=== PATIENT | male | born 2000 | race Caucasian/White ===

== ENCOUNTER 2023-09-17 02:30 | Emergency (ER) | payer SELFPAY ==
[2023-09-17 02:32] VITALS: BP 144/85; PULSE 84; RESP 16; TEMP 37.1; O2SAT 100
== END 2023-09-17 02:40 | disposition left against medical advice (07) ==
PROVIDERS: PCP Pediatrics
DX: S39.92XA Unspecified injury of lower back, initial encounter (principal); V43.52XA Car driver injured in collision with other type car in traffic accident, initial encounter
CPT/HCPCS: 99199